=== PATIENT | male | born 1985 | race Two or more races ===

== ENCOUNTER 2023-01-23 03:56 | Emergency (ER) | payer MEDICAID, OTHER ==
[~2023-01-23] VITALS: Ht 177.8 cm; Wt 83.2 kg
[2023-01-23 04:10] VITALS: BP 120/87; PULSE 102; RESP 18; TEMP 97.4; O2SAT 98
[2023-01-23] MEDS ORDERED: OFL50TS OT (04:43)
== END 2023-01-23 05:55 | disposition home or self-care (01) ==
LOC: ER 03:56
DX: T16.1XXA Foreign body in right ear, initial encounter (principal); W44.G1XA Audio device entering into or through a natural orifice, initial encounter; Y93.89 Activity, other specified; Y92.89 Other specified places as the place of occurrence of the external cause; Y99.8 Other external cause status
CPT/HCPCS: 69200